=== PATIENT | female | born 1970 | race Hispanic/Latino ===

== ENCOUNTER 2024-07-23 10:07 | Emergency (ER) | payer OTHER ==
[~2024-07-23] VITALS: Ht 152.4 cm; Wt 88.0 kg
--- NOTE | 2024-07-23 10:16 | ERN ---
ED Note History of Present Illness Stated Complaint: BODY ACHES, FEVER,COUGH, CHEST WAL PAIN, BACK PAIN Chief Complaint: Multiple Complaints Time Seen by MD: 10:10 Dictation: PATIENT IS A 53-YEAR-OLD FEMALE COMING IN TODAY WITH FLU-LIKE SYMPTOMS TO INCLUDE BODY ACHES, COUGH WITH CLEAR PHLEGM, FEVER CHILLS BACKACHE AND CHEST PAIN WITH COUGH FOR THREE DAYS. NO RADICULAR PAIN STATES SHE HAS A HISTORY OF ASTHMA AND HYPERTENSION, DID NOT GO SEE HER PRIMARY CARE DOCTOR. ADDITIONALLY SHE HAS NOT USED A INHALER IN FOR YEARS BECAUSE HER DOCTOR QUIT ASSURING AFTER Allergies: Coded Allergies: No Known Drug Allergies (Unverified Allergy, Unknown, 07/23/24) Past Medical History Past Medical History: Asthma, Hypertension Surgical History: Other History: Not Applicable RN Note Reviewed/Agreed w/PFSH: Yes Review of System Dictation CONSTITUTIONAL: NEGATIVE EXCEPT FOR HPI FEVER CHILLS/BODY ACHES HEAD/FACE: NEGATIVE EXCEPT FOR HPI EENT: NEGATIVE EXCEPT FOR HPI SORE THROAT WITH PAINFUL SWALLOWING RESPIRATORY: NEGATIVE EXCEPT FOR HPI COUGH WITH CLEAR PHLEGM, CHEST PAIN WITH COUGH GASTROINTESTINAL/ABDOMINAL: NEGATIVE EXCEPT FOR HPI GENITOURINARY: NEGATIVE EXCEPT FOR HPI MUSCULOSKELETAL: NEGATIVE EXCEPT FOR HPI INTEGUMENTARY: NEGATIVE EXCEPT FOR HPI NEUROLOGICAL/PSYCH: NEGATIVE EXCEPT FOR HPI HEMATOLOGIC/LYMPHATIC: NEGATIVE EXCEPT FOR HPI ALL SYSTEMS NEGATIVE, EXCEPT NOTED ABOVE. 13 POINT REVIEW OF SYSTEMS ASSESSED AND ALL NEGATIVE EXCEPT FOR ABOVE. Initial Vital Sign VS Vital Signs Date Time Temp Pulse Resp B/P (MAP) Pulse Ox O2 Delivery O2 Flow Rate FiO2 07/23/24 10:09 98.4 88 14 173/103 96 Room Air 0 Physical Exam Dictation VITAL SIGNS REVIEWED GENERAL APPEARANCE: ALERT, ORIENTED X 3, MODERATE ACUTE DISTRESS, WELL DEVELOPED, NOURISHED. HEAD AND FACE: NON-TRAUMATIC. EYES: PERRL, PINK CONJUNCTIVAS, EYELID NO TRAUMA, ANTERIOR CHAMBER WITH ARCUS SENILIS. EARS: PINNAS INTACT AND NO SIGNS OF TRAUMA OR ERYTHEMA EAR CANALS CLEAR AND NO DISCHARGE TM NO ERYTHEMA NOSE: CLEAR DISCHARGE, NO BLEEDING. OROPHARYNX: MOUTH NORMAL, TONGUE PINK, PHARYNX CLEAR, MODERATE PHARYNGEAL ERYTHEMA, TONSILS NO EXUDATES, NO ABSCESSES NOTED, MUCOUS MEMBRANE MOIST WITH A MIDLINE, VOICE IS CLEAR NECK: SUPPLE, NON-TENDER, NO THYROMEGALY, NO MASSES, NO JVD, NO BRUITS BREAST:DEFERRED CHEST DIFFUSE ANTERIOR CHEST WALL TENDERNESS, NO CREPITUS, NO PARADOXICAL MOV EMENT, NO RETRACTIONS REPRODUCES CALL LUNGS:CLEAR, WELL-VENTILATED, SYMMETRIC, NO RALES, NO WHEEZING, NO RHONCHI, NO STRIDOR, GOOD BREATH SOUNDS BILATERALLY INTERMITTENT DRY COUGH NOTED HEART: REGULAR RATE, REGULAR RHYTHM, NO MURMUR, NO GALLOPS VASCULAR: NO PERIPHERAL EDEMA, ABDOMEN: SOFT, POSITIVE BOWEL SOUNDS, NONDISTENDED, NO GUARDING, NONTENDER, NO REBOUND, NO MASSES NO HEPATOMEGALY, NO SPLENOMEGALY, NO PATE'S SIGN, NO HERNIAS. RECTAL: DEFERRED GENITAL: DEFERRED NEUROLOGICAL: NORMAL SPEECH, MOTOR FUNCTION INTACT, SENSORY FUNCTION INTACT MUSCULOSKELETAL: NECK NONTENDER, FULL RANGE OF MOTION, BACK NONTENDER, FULL RANGE OF MOTION, EXTREMITIES: NONTENDER, FULL RANGE OF MOTION SKIN: COLOR PINK, DRY, NO TURGOR, NO RASH, NO LACERATIONS, NO ABRASIONS, NO CONTUSIONS. LYMPHATIC: DEFERRED Results (Laboratory/Radiology) Laboratory/Radiology Laboratory Tests Test 07/23/24 10:17 Influenza Type A Antigen Negative For Type A Influenza Type B Antigen Negative For Type B SARS-CoV-2 Antigen (Rapid) PRESUMPTIVE NEGATIVE Labs Reviewed?: Yes ED Course ED Course Orders Procedure Category Date Status Time 12 Lead Ekg Tracing- EKG 07/23/24 Logged Technical 10:14 12 Lead Ekg Tracing- EKG 07/23/24 Logged Technical 10:14 Albuterol 0.083% PHA 07/23/24 Complete 2.5mg/3ml (Proventil 10:30 Covid19 (Sars Antigen LAB 07/23/24 Complete Rapid) 10:14 Influenza Type A & B, LAB 07/23/24 Complete Rapid 10:14 Ibuprofen 800 Mg Tab PHA 07/23/24 Complete (Motrin) 10:30 Dexamethasone 4mg/Ml PHA 07/23/24 Complete 1ml Vial (Dexametha 10:30 Current Medications Medications (Trade) Dose Ordered Sig/Joshua Route PRN Reason Start Time Stop Time Status Last Admin Dose Admin Albuterol Sulfate (Proventil 0.083% 2.5mg/3ml) 5 mg ONCE ONCE IH 07/23/24 10:30 07/23/24 10:31 DC 07/23/24 10:45 Dexamethasone Sodium Phosphate (dexaMETHasone 4MG/ML 1ML VIAL) 8 mg ONCE ONCE IM 07/23/24 10:30 07/23/24 10:31 DC 07/23/24 10:39 Ibuprofen (moTRIN) 800 mg ONCE ONCE PO 07/23/24 10:30 07/23/24 10:31 DC 07/23/24 10:40 Vital Signs Date Time Temp Pulse Resp B/P (MAP) Pulse Ox O2 Delivery O2 Flow Rate FiO2 07/23/24 10:48 81 07/23/24 10:09 98.4 88 14 173/103 96 Room Air 0 1100/BILATERAL BREATH SOUNDS CLEAR TO AUSCULTATION PATIENT IS SATTING 98 99% ON ROOM AIR. SHE IS AWARE THAT SHE HAS BEEN NINE HYPERTENSION AND NEEDS TO FOLLOW UP WITH HER PRIMARY CARE DOCTOR TODAY OR TOMORROW. ALL QUESTIONS ANSWERED Medical Decision Making MDM MEDICAL DISCHARGE MAKING BASED ON TREATMENT FOR COSTOCHONDRITIS AND EKG/LABS EKG NEGATIVE SWABS NEGATIVE PATIENT WILL BE TREATED FOR COUGH, BACTERIAL BRONCHITIS, COSTOCHONDRITIS DX & DISP Disposition: Discharge Departure Impression: Primary Impression: Acute bacterial bronchitis Additional Impressions: Cough, Costochondritis, acute, Benign hypertension, Obesity Condition: Stable Scripts Azithromycin (Zithromax Tri-Shon) 500 Mg Tablet 500 MG PO DA for 5 Days, #5 TAB Prov: LILA ORTIZ NP 07/23/24 Benzonatate (Tessalon Perles) 100 Mg Cap 200 MG PO TID for cough, #60 CAP 0 Refills Prov: LILA ORTIZ NP 07/23/24 Albuterol Sulfate (Ventolin Hfa/Proventil Hfa/Proair Hfa) 90 Mcg Puff 2 PUFF IH Q4H for WHEEZING, #1 INHALER 0 Refills Prov: LILA ORTIZ NP 07/23/24 Additional Instructions: FOLLOW-UP WITH PRIMARY CARE PROVIDER IN 1 TO 2 DAYS. TAKE MEDICATIONS DIRECTED HERE IN THE EMERGENCY ROOM. OKAY TO CONTINUE HOME MEDICATIONS UNLESS OTHERWISE DISCUSSED DURING YOUR VISIT IN THE EMERGENCY ROOM TODAY. RETURN TO YOUR NEAREST EMERGENCY ROOM IF SYMPTOMS WORSEN OR IF THERE IS NO IMPROVEMENT. CALL 911 IF YOU NEED IMMEDIATE ASSISTANCE. TAKE TYLENOL OR MOTRIN [id number] NEEDED AND IF NO CONTRAINDICATIONS ARE PRESENT. INCREASE ORAL HYDRATION. A WOUND CULTURE OR URINE CULTURE WAS ORDERED HERE IN THE EMERGENCY ROOM DEPARTMENT PLEASE FOLLOW-UP WITH PRIMARY CARE PROVIDER AND ADVISE THEM TO GET REPEAT PORTS FROM OUR FACILITY. IF YOU HAD ANY SUPRIYA WRAP/SPLINTS THAT WERE APPLIED HERE, PLEASE DO NOT REMOVE THEM UNTIL YOU SEE YOUR PRIMARY CARE OR SPECIALTY. TAKE ANTIBIOTICS DIRECTED UNTIL GONE. USE ALBUTEROL INHALER EVERY 4 HOURS WHILE AWAKE FOR THE NEXT TWO DAYS. FOLLOW UP WITH YOUR PRIMARY CARE DOCTOR IN THE NEXT 1-2 DAYS FOR MANAGEMENT OF YOUR BLOOD PRESSURE. Time of Disposition: 11:03 I have reviewed the case, and I agree with, Diagnosis and Plan LILA ORTIZ NP July 23, 2024 10:16
[2024-07-23] MEDS: dexaMETHasone SOD PHOSPHATE 4 MG/ML 1ML VIAL IM ONE (10:39)
[2024-07-23] MEDS: ibuPROFEN 800 MG TAB PO ONE (10:40)
[2024-07-23] MEDS: ALBUTEROL 0.083% 2.5 MG/3 ML INH IH ONE (10:45)
[2024-07-23 10:48] VITALS: PULSE 81
[2024-07-23 10:51] LABS: INFLUENZA TYPE A Negative For Type A (NEGATIVE); INFLUENZA TYPE B Negative For Type B (NEGATIVE)
[2024-07-23 10:52] LABS: COVID19 (SARS ANTIGEN RAPID) PRESUMPTIVE NEGATIVE (NEGATIVE)
[2024-07-23] MEDS ORDERED: BENZ-39 PO (11:04)
[2024-07-23] MEDS ORDERED: AZIT500T2 PO (11:04)
[2024-07-23] MEDS ORDERED: ALBUHFA IH (11:04)
[2024-07-23 11:50] VITALS: BP 139/80; PULSE 84; RESP 20; TEMP 98.5; O2SAT 97
--- NOTE | 2024-07-23 15:18 | EKG ---
[facility] Test Date: 2024-07-23 Test Time: 10:12:43 Pat Name: JACQUIE DIAZ Department: ED Room: Gender: F [employer]: 06 : 1970 Requested By: BIBIANA CAMPBELL Order Number: [id number] Reading MD: Chris Washington Measurements Intervals [place] Rate: 87 P: 37 W[place]: 112 QRS: 55 QRSD: 81 T: 5 QT: 337 QTc: 406 Interpretive Statements Sinus rhythm Probable left atrial enlargement No previous ECG available for comparison Electronically Signed On 07-25-2024 13:05:01 CDT by Chris Washington Please click the below link to view image of tracing.
== END 2024-07-23 11:58 | disposition home or self-care (01) ==
LOC: EDH 10:07
DX: J20.8 Acute bronchitis due to other specified organisms (principal); R05.9 Cough, unspecified; M94.0 Chondrocostal junction syndrome [Tietze]; I10 Essential (primary) hypertension; E66.9 Obesity, unspecified; J45.909 Unspecified asthma, uncomplicated; B96.89 Other specified bacterial agents as the cause of diseases classified elsewhere; Z20.822 Contact with and (suspected) exposure to COVID-19; Z79.899 Other long term (current) drug therapy
CPT/HCPCS: 99284; 87426; 87804 ×2; 96372; 93005; 94640; J1100